=== PATIENT | male | born 1955 | race Two or more races ===

== ENCOUNTER 2024-07-13 23:01 | Emergency (ER) | payer SELFPAY ==
[~2024-07-13] VITALS: Ht 180.3 cm; Wt 62.5 kg
[2024-07-13 23:25] VITALS: BP 118/76; RESP 20; O2SAT 98
[2024-07-14 01:00] LABS: Basophils # (auto) 0 10 ^3/uL (0-0.2); Basophils % (auto) 0.3 % (0.0-2.0); Eosinophils # (auto) 0.2 10 ^3/uL (0-0.8); Eosinophils % (auto) 1.5 % (0.0-7.0); Hematocrit 42.2 % (41.0-53.0); Hemoglobin 14.4 g/dL (13.5-17.5); Lymphocytes # (auto) 1.3 10 ^3/uL (0.4-5.4); Lymphocytes % (auto) 9.8 % (10.0-50.0); Mean Corpuscular Hemoglobin 31.2 pg (28.0-32.0); Mean Corpuscular Volume 91.7 fL (80.0-100.0); Monocytes # (auto) 0.7 10 ^3/uL (0-1.3); Monocytes % (auto) 4.8 % (0.0-12.0); Neutrophils # (auto) 11.3 10 ^3/uL (1.6-8.6); Neutrophils % (auto) 83.6 % (37.0-80.0); Platelet Count (auto) 234 10^3/uL (140-450); Red Cell Distribution Width 14.2 % (11.8-14.3); White Blood Cell 13.5 10^3/uL (4.4-10.8)
[2024-07-14 01:03] LABS: Urine Bacteria None Seen /hpf (None Seen)
[2024-07-14 01:16] LABS: INR 0.96 (0.9-1.15); Partial Thromboplastin Time 26.6 SEC (24.5-34.5); Prothrombin Time 10.2 sec (9.3-11.8)
[2024-07-14 01:19] LABS: Urine Amorphous Crystal FEW /hpf (None Seen); Urine Blood 1+ /uL (Negative); Urine Clarity Clear (Clear); Urine Color Yellow (Yellow); Urine Protein, UAD TRACE (Negative); Urine Specific Gravity 1.024 (1.001-1.035); Urine Urobilinogen Normal (Negative); Urine WBC 1 /hpf (0 - 3); Urine pH 6.5 (5.0-9.0)
[2024-07-14 01:33] LABS: Alanine Aminotransferase 15 U/L (7-40); Albumin 4.7 g/dL (3.2-4.8); Alkaline Phosphatase 60 U/L (46-116); Anion Gap 5 (5-15); Aspartate Aminotransferase 13 U/L (13-40); BUN/Creatinine Ratio 9.5 (10.0-20.0); Bilirubin, Total 0.7 mg/dL (0.2-1.0); Blood Urea Nitrogen 10 mg/dL (9-23); Calcium 9.7 mg/dL (8.7-10.4); Carbon Dioxide 26 mmol/L (20-30); Chloride 107 mmol/L (98-107); Glucose 103 mg/dL (74-106); Lipase 38 U/L (12-53); Sodium 138 mmol/L (136-145)
[2024-07-14 02:10] VITALS: PULSE 62
== END 2024-07-14 03:49 | disposition left against medical advice (07) ==
LOC: ER 23:01
DX: K37 Unspecified appendicitis (principal)
CPT/HCPCS: 36415; 71045; 74176; 80053; 81001; 83690; 84484; 85025; 85610; 85730; 93005

== ENCOUNTER 2024-07-14 14:02 | Emergency (ER) | payer OTHER ==
[~2024-07-14] VITALS: Ht 180.3 cm; Wt 63.5 kg
[2024-07-14 16:05] LABS: INR 1.01 (0.9-1.15); Partial Thromboplastin Time 29.3 SEC (24.5-34.5); Prothrombin Time 10.7 sec (9.3-11.8)
[2024-07-14] MEDS: PIPERACILLIN-TAZOB 3.375GM 100 ML IV ONE (16:13)
[2024-07-14] MEDS: SODIUM CHLORIDE 0.9% 1,000 ML IVB ONE (16:14)
[2024-07-14 16:17] VITALS: BP 117/74; PULSE 64; RESP 15; TEMP 97; O2SAT 99
== END 2024-07-14 23:09 | disposition left against medical advice (07) ==
LOC: ER 14:02
DX: R10.31 Right lower quadrant pain (principal); K35.80 Unspecified acute appendicitis
CPT/HCPCS: 36415; 85610; 85730; 96365; 99284; J2543; J7030; 96361

== ENCOUNTER 2024-09-28 06:14 | Inpatient (IN) | payer OTHER ==
[~2024-09-28] VITALS: Ht 180.3 cm; Wt 63.5 kg
--- NOTE | 2024-09-28 06:39 | ED.PDOC ---
GI ASSESSMENT HPI Comments 69M presents to the ER w/ prior Hx of being diagnosed w/ appendicitis in June which may be associated to the c/c of ABD pain. Pt reports on having periumbilical pain at 0300 today associated w/ N/ and chills. Social Hx of tobacco use but denies alcohol and substance use. Denies fever, /V/D, SOB, CP or other associated symptoms, modifiers, or recent injuries or sick contact at this time. Chief Complaint: Abdominal Pain Time Seen by MD: 06:30 Primary Care Provider: ANNA Reviewed Notes: Nurses Notes, Medications, Allergies Allergies: Coded Allergies: NO KNOWN ALLERGIES (Unverified , 07/14/24) Information Source: Patient Mode of Arrival: Ambulatory Timing: Hours Duration: Since onset, Hours Prehospital treatment: None Quality: Aching Vomitus: None Stool: Normal Severity: Moderate Recent: None Recent Hx of: None Pain Location: Epigastric Associated sign and symptoms: Nausea, Abdominal Pain Past Medical History Past Medical History (Other): Diagnosed w/ appendecitis in June Surgical History: Denies all surgeries Family History Family History: Reviewed,noncontributory to illness, Unknown Social History Smoker: Cigarettes Alcohol: Denies ETOH Use Drugs: Denies Drug Use Lives In: Home Constitutional: reports: chills; denies: diaphoresis, fatigue, fever, malaise, sweats, weakness, others EENTM: denies: blurred vision, double vision, ear bleeding, ear discharge, ear drainage, ear pain, ear ringing, eye pain, eye redness, hearing loss, mouth pain, mouth swelling, nasal discharge, nose bleeding, nose congestion, nose pain, photophobia, tearing, throat pain, throat swelling, voice changes, others Respiratory: denies: cough, hemoptysis, orthopnea, SOB at rest, shortness of breath, SOB with excertion, stridor, wheezing, others Cardiovascular: denies: chest pain, dizzy spells, diaphoresis, Dyspnea on exertion, edema, irregular heart beat, left arm pain, lightheadedness, palpitations, PND, syncope, others Gastrointestinal: reports: abdominal pain, nausea; denies: abdomen distended, blood streaked bowels, constipated, diarrhea, dysphagia, difficulty swallowing, hematemesis, melena, poor appetite, poor fluid intake, rectal bleeding, rectal pain, vomiting, others Genitourinary: denies: burning, dysuria, flank pain, frequency, hematuria, incontinence, penile discharge, penile sore, pain, testicle pain, testicle swelling, urgency, others Neurological: denies: dizziness, fainting, headache, left sided numbness, left sided weakness, numbness, paresthesia, pre-existing deficit, right sided numbness, right sided weakness, seizure, speech problems, tingling, tremors, weakness, others Musculoskeletal: denies: back pain, gout, joint pain, joint swelling, muscle pain, muscle stiffness, neck pain, others Integumetry: denies: bruises, change in color, change in hair/nails, dryness, laceration, lesions, lumps, rash, wounds, others Allergic/Immunocompromised: denies: Difficulty Healing, Frequent Infections, Hives, Itching, others Hematologic/Lymphatic: denies: anemia, blood clots, easy bleeding, easy bruising, swollen glands, others Endocrine: denies: excessive hunger, excessive sweating, excessive thirst, excessive urination, flushing, intolerance to cold, intolerance to heat, unexplained weight gain, unexplained weight loss, others Psychiatric: denies: anxiety, bipolar disorder, depression, hopeless, panic disorder, schizophrenia, sleepless, suicidal, others All Other Systems: Reviewed and Negative Physical Exam General Appearance: Moderate Distress, Normal HEENT: Normal ENT Inspection, Pharynx Normal, TMs Normal Neck: Full Range of Motion, Non-Tender, Normal, Normal Inspection Respiratory: Chest Non-Tender, Lungs Clear, No Accessory Muscle Use, No Respiratory Distress, Normal Breath Sounds Cardiovascular: No Edema, No JVD, No Murmur, No Gallop, Normal Peripheral Pulses, Regular Rate/Rhythm Breast Exam: Deferred Gastrointestinal: Distended, No Organomegaly, Non Tender, No Pulsatile Mass, Normal Bowel Sounds, Soft Genitalia: Deferred Pelvic: Deferred Rectal: Deferred Extremities: No calf tenderness, Normal capillary refill, Normal inspection, Normal range of motion, Non-tender, No pedal edema Musculoskeletal : Apperance: Normal Neurologic: Alert, digital analyst II-XII nml as Tested, No Motor Deficits, Normal Affect, Normal Mood, No Sensory Deficits Cerebellar Function: Normal Reflexes: Normal Skin: Dry, Normal Color, Warm Peripheral Pulses: 3+ Radial (R), 3+ Radial (L) Lymphatic: No Adenopathy Was a procedure done? Was a procedure done?: No GI differential Dx Differential Diagnosis: Constipation, Diverticular disease, Esophagitis, Gastritis/PUD, Gastroenteritis X-Ray, Labs, Meds, VS Vital Signs Date Time Temp Pulse Resp B/P (MAP) Pulse Ox O2 Delivery O2 Flow Rate FiO2 09/28/24 06:22 98.1 78 17 133/76 (95) 98 Patient alert. Complaining of abdominal pain. Slightly distended. Vitals stable. Answering all questions. Was seen here few months ago for similar pain. Was diagnosed with a appendicitis. He left without having the procedure. Reviewed his previous visit. Explained to the patient. Continue cardiac monitoring. Establish intravenous access. Was given fluids. Was given morphine. Was given Zofran. Was given Rocephin. He continues to smoke cigarettes. Counseled patient on effects of smoking cigarettes for 15 minutes. Time of 1ST Reevaluation: 07:00 Reevaluation 1ST: Unchanged Patient Education/Counseling: Diagnosis, Treatment, Prognosis Family Education/Counseling: No Family Present Departure 1 Departure Time of Disposition: 06:50 Impression: Primary Impression: Acute abdominal pain Additional Impression: Acute appendicitis Qualified Codes: K35.80 - Unspecified acute appendicitis Disposition: ADMITTED INPATIENT Admit to: Med Surg Condition: Guarded Critical Care Note Critical Care Time?: Yes (45 min-critical care time only) Stability Stability form required: No Heart Score Heart Score: Heart Score Response (Comments) Value History N/A 0 EKG N/A 0 Age N/A 0 Risk Factors N/A 0 Troponin N/A 0 Total 0 I personally scribed for JOSE F BRANTLEY MD ([email or web address]) on 09/28/24 at 06:39. Electronically submitted by Adeel Lambert ([email or web address]). JOSE F BRANTLEY MD Sep 28, 2024 06:39
[2024-09-28 07:07] LABS: Basophils # (auto) 0 10 ^3/uL (0-0.2); Basophils % (auto) 0.2 % (0.0-2.0); Eosinophils # (auto) 0.3 10 ^3/uL (0-0.8); Eosinophils % (auto) 1.9 % (0.0-7.0); Hematocrit 41.5 % (41.0-53.0); Hemoglobin 13.7 g/dL (13.5-17.5); Lymphocytes # (auto) 1.4 10 ^3/uL (0.4-5.4); Lymphocytes % (auto) 9.4 % (10.0-50.0); Mean Corpuscular Hemoglobin 30.3 pg (28.0-32.0); Mean Corpuscular Hgb Conc. 33.1 g/dL (32.0-36.0); Mean Corpuscular Volume 91.6 fL (80.0-100.0); Monocytes # (auto) 0.5 10 ^3/uL (0-1.3); Monocytes % (auto) 3.6 % (0.0-12.0); Neutrophils # (auto) 12.3 10 ^3/uL (1.6-8.6); Neutrophils % (auto) 84.9 % (37.0-80.0); Platelet Count (auto) 245 10^3/uL (140-450); Red Blood Cells 4.53 10^6/uL (4.5-5.90); Red Cell Distribution Width 14.6 % (11.8-14.3); White Blood Cell 14.6 10^3/uL (4.4-10.8)
[2024-09-28] MEDS: SODIUM CHLORIDE 0.9% 1,000 ML IV ONE (07:22)
[2024-09-28] MEDS: cefTRIAXone 1GM/50ML D5W 50 ML IV ONE (07:22)
[2024-09-28] MEDS: MORPHINE SULFATE 4 MG/ML SYR/VIAL IV ONE (07:24)
[2024-09-28] MEDS: ONDANSETRON HCL 4 MG/2 ML VIAL IV ONE (07:24)
[2024-09-28 07:47] LABS: Chloride 108 mmol/L (98-107); Sodium 138 mmol/L (136-145)
[2024-09-28 07:48] LABS: Anion Gap 3 (5-15); Calcium 9.7 mg/dL (8.7-10.4); Carbon Dioxide 27 mmol/L (20-31)
[2024-09-28 07:53] LABS: BUN/Creatinine Ratio 9.2 (10.0-20.0); Blood Urea Nitrogen 11 mg/dL (9-23); Glucose 136 mg/dL (74-106)
--- NOTE | 2024-09-28 08:06 | DVH ---
Exam: CT CT AB PEL WO CON-NO ORAL OR IV History: appy Comparison Study: CT CT AB PEL WO CON-NO ORAL OR IV on DOS: 07/13/24 Technique: Multidetector spiral CT of the abdomen was performed from lung bases to pubic symphysis. Imaging was performed without IV contrast. Axial, coronal and sagittal multiplanar reformats were ob tained from the axial data set by the technologist. Radiation Dose : 1. Abdomen/Pelvis: CTDIvol 5.1 mGy, DLP 262.51 mGy*cm. Findings: Evaluation of solid organs is limited due to lack of intravenous contrast use. Lung Bases: No acute or significant lung base finding. Normal heart size. No pleural or pericardial effusion. Liver: The liver is normal in size. No focal lesions. Gallbladder and Biliary Tree: Unremarkable Spleen: Unremarkable Pancreas: The pancreas is grossly normal in appearance. Adrenal Glands: Unremarkable Kidneys: No hydronephrosis. Bilateral renal medullary nephrocalcinosis. Bladder: Grossly unremarkable for degree of distention. Bowel: Distended stomach. Diverticulosis. Appendix is diffusely dilated measuring 1.2 cm with mild p eriappendiceal inflammatory change. Ascites: Absent Lymphadenopathy: No mesenteric, retroperitoneal or periportal lymphadenopathy. Abdominal Wall and Mesentery: Unremarkable. Vasculature: The visualized abdominal aorta is normal in size and caliber. There is extensive athero sclerotic calcification of the aorta and its branches. Evaluation of abdominal and pelvic vessels is limited due to lack of intravenous contrast. Pelvic Organs: Unremarkable Musculoskeletal: No aggressive focal bony lesions, acute fractures or dislocation. Multilevel degener ative changes of the spine. IMPRESSION: The appendix is diffusely dilated with mild periappendiceal inflammatory changes. Maximal diameter o f the appendix measures 1.2 cm. Findings are suspicious for acute appendicitis, however, appearance i s similar to CT dated 07/13/2024. Clinical correlation advised. Radiation optimization: All CT scans at this facility use at least one of these dose optimization jan hniques: automated exposure control mA and/or kV adjustment per patient size (includes targeted exam s where dose is matched to clinical indication) or iterative reconstruction.
[2024-09-28 08:45] VITALS: PULSE 74; RESP 15; O2SAT 100
[2024-09-28] MEDS: metroNIDAZOLE 500MG/100ML 100 ML IV ONE (08:52)
[2024-09-28] MEDS ORDERED: HYDROcodone-ACET 5/325MG TAB PO PRN (13:15)
[2024-09-28] MEDS ORDERED: MORPHINE SULFATE INJ 2 MG/ml SYRG IV PRN (13:15)
[2024-09-28] MEDS ORDERED: ONDANSETRON HCL 4 MG/2 ML VIAL IV PRN (13:15)
[2024-09-28] MEDS ORDERED: MAALOX PLUS or MAALOX 30 ML PO PRN (13:15)
[2024-09-28] MEDS ORDERED: DOCUSATE SOD 100 MG CAP PO PRN (13:15)
[2024-09-28] MEDS ORDERED: ACETAMINOPHEN 325 MG TAB PO PRN (13:15)
[2024-09-28] MEDS: metroNIDAZOLE 500MG/100ML 100 ML IV SCH (14:27)
[2024-09-28] MEDS: D5W/SOD CHL 0.45% 1,000 ML IV ONE (14:27)
--- NOTE | 2024-09-28 14:48 | DVHINCON2 ---
Date of service: Sep 28, 2024 Allergies: Coded Allergies: NO KNOWN ALLERGIES (Unverified , 07/14/24) Current Medications Current Medications Medications (Trade) Dose Ordered Sig/Krystyna Route PRN Reason Start Time Stop Time Status Last Admin Metronidazole 100 ml @ 100 mls/hr Q8HR IV 09/28/24 14:00 09/28/24 14:27 Morphine Sulfate 2 mg Q4HPRN PRN IV PAIN SCALE 7 THRU 10 09/28/24 13:15 Al Hydrox/Mg Hydrox/Simethicone (Maalox Plus) 30 ml Q6HP PRN PO FOR STOMACH DISTRESS 09/28/24 13:15 Docusate Sodium (Colace Capsule) 100 mg BIDPRN PRN PO FOR CONSTIPATION 09/28/24 13:15 Acetaminophen (Tylenol Tablet) 650 mg Q6HP PRN PO PAIN SCALE 1-3 OR TEMP>100.4 09/28/24 13:15 Acetaminophen/ Hydrocodone Bitart ([place] 5/325MG Tab) 1 tab Q4HP PRN PO MODERATE PAIN (4-6 PAIN SCALE) 09/28/24 13:15 Ondansetron HCl (Zofran) 4 mg Q4HP PRN IV NAUSEA / VOMITING 09/28/24 13:15 Vital Signs Vital Signs Date Time Temp Pulse Resp B/P (MAP) Pulse Ox O2 Delivery O2 Flow Rate FiO2 09/28/24 14:00 65 16 91/48 (62) 97 09/28/24 08:45 Room Air* 0 21 09/28/24 07:13 98.6 98.6 Labs/Diagnostic Data Labs Test 09/28/24 06:29 Range/Units White Blood Count 14.6 H 4.4-10.8 10^3/uL Red Blood Count 4.53 4.5-5.90 10^6/uL Hemoglobin 13.7 13.5-17.5 g/dL Hematocrit 41.5 41.0-53.0 % Mean Corpuscular Volume 91.6 80.0-100.0 fL Mean Corpuscular Hemoglobin 30.3 28.0-32.0 pg Mean Corpuscular Hemoglobin Concent 33.1 32.0-36.0 g/dL Red Cell Distribution Width 14.6 H 11.8-14.3 % Platelet Count 245 140-450 10^3/uL Mean Platelet Volume 8.7 6.9-10.8 fL Neutrophils (%) (Auto) 84.9 H 37.0-80.0 % Lymphocytes (%) (Auto) 9.4 L 10.0-50.0 % Monocytes (%) (Auto) 3.6 0.0-12.0 % Eosinophils (%) (Auto) 1.9 0.0-7.0 % Basophils (%) (Auto) 0.2 0.0-2.0 % Neutrophils # (Auto) 12.3 H 1.6-8.6 10 ^3/uL Lymphocytes # (Auto) 1.4 0.4-5.4 10 ^3/uL Monocytes # (Auto) 0.5 0-1.3 10 ^3/uL Eosinophils # (Auto) 0.3 0-0.8 10 ^3/uL Basophils # (Auto) 0 0-0.2 10 ^3/uL Nucleated Red Blood Cells 0.0 % Sodium Level 138 136-145 mmol/L Potassium Level 4.0 3.5-5.1 mmol/L Chloride Level 108 H 98-107 mmol/L Carbon Dioxide Level 27 20-31 mmol/L Anion Gap 3 L 5-15 Blood Urea Nitrogen 11 9-23 mg/dL Creatinine 1.20 0.700-1.30 mg/dL Glomerular Filtration Rate Calc 65 >90 mL/min BUN/Creatinine Ratio 9.2 L 10.0-20.0 Serum Glucose 136 H 74-106 mg/dL Calcium Level 9.7 8.7-10.4 mg/dL Assessment 69 YEASR OLD MALE HAD IDENTICAL ILLNESS IN JUNE BUT "IT WENT AWAY BY ITSELF", NOW C/O ABDOMINAL PAIN, CT SCAN SHOWS APPENDICEAL ENLARGEMENT, WITHOUT SURROUNDING INFLAMMATORY CHANGES, ABDOMEN EXAM:TENDER RLQ WITHOUT GUARDING OR REBOUND. WILL DO APPENDECTOMY IN THE MORNING, OPERATION, RISKS AND COMPLICATIONS EXPLAINED IN DETAIL Plan discussed with: Patient GERBER LOVE MD Sep 28, 2024 14:48
[2024-09-28 14:58] VITALS: BP 98/51; PULSE 65; RESP 18; TEMP 97.8; O2SAT 98
--- NOTE | 2024-09-28 15:20 | DVHHP2 ---
History of Present Illness Reason for Visit: abdominal pain History of Present Illness 69 yo male elder feeble appearing states acute abdominal pain came to the ed for evaluation ct scan showed appendix enlargement signs of acute appendicitis with worsening pain patient for admission and further evaluation Review of Systems Constitutional: Yes: Fever; No: Chills, Sweats, Weakness, Malaise, Other Eyes: No: Pain, Vision change, Conjunctivae inflammation, Eyelid inflammation, Other, Redness ENT: No: Ear pain, Ear discharge, Nose pain, Nose discharge, Nose congestion, Mouth pain, Mouth swelling, Throat pain, Throat swelling, Other Respiratory: No: Cough, Dry, Shortness of breath, SOB with excertion, Wheezing, Hemoptysis, Pleuritic Pain, Sputum, Wheezing, Other Cardiovascular: No: Chest Pain, Palpitations, Orthopnea, Paroxysmal Noc. Dyspnea, Edema, Lt Headedness, Other Gastrointestinal: Abdominal Pain; No: Nausea, Vomiting, Diarrhea, Constipation, Melena, Hematochezia, Other Genitourinary: No Dysuria, No Frequency, No Incontinence, No Hematuria, No Retention, No Other Musculoskeletal: No: other, neck pain, shoulder pain, arm pain, back pain, hand pain, leg pain, foot pain Skin: No: Rash, Lesions, Jaundice, Bruising, Other Neurological: No: Weakness, Numbness, Incoordination, Change in speech, Confusion, Seizures, Other Allergies: Coded Allergies: NO KNOWN ALLERGIES (Unverified , 07/14/24) Medications Current Medications Medications Dose Ordered Sig/Krystyna Route Start Time Stop Time Status Last Admin Dose Admin Metronidazole 100 ml @ 100 mls/hr Q8HR IV 09/28/24 14:00 09/28/24 14:27 100 MLS/HR Morphine Sulfate 2 mg Q4HPRN PRN IV 09/28/24 13:15 Al Hydrox/Mg Hydrox/Simethicone 30 ml Q6HP PRN PO 09/28/24 13:15 Docusate Sodium 100 mg BIDPRN PRN PO 09/28/24 13:15 Acetaminophen 650 mg Q6HP PRN PO 09/28/24 13:15 Acetaminophen/ Hydrocodone Bitart 1 tab Q4HP PRN PO 09/28/24 13:15 Ondansetron HCl 4 mg Q4HP PRN IV 09/28/24 13:15 Exam Vital Signs Vital Signs Date Time Temp Pulse Resp B/P (MAP) Pulse Ox O2 Delivery O2 Flow Rate FiO2 09/28/24 14:00 65 16 91/48 (62) 97 09/28/24 13:17 98.1 98.1 09/28/24 08:45 Room Air* 0 21 General Appearance: Alert, Oriented X3 HEENT: Atraumatic, PERRLA Respiratory: Clear to auscultation, Normal air movement Cardiovascular: Regular rate, Normal S1, Normal S2 Abdominal: Other (abdominal pain with tenderness mild ) Extremities: No clubbing, No cyanosis Skin: No rashes, No breakdown Neuro: Normal gait, Normal speech Labs/Xrays Labs Test 09/28/24 06:29 Range/Units White Blood Count 14.6 H 4.4-10.8 10^3/uL Red Blood Count 4.53 4.5-5.90 10^6/uL Hemoglobin 13.7 13.5-17.5 g/dL Hematocrit 41.5 41.0-53.0 % Mean Corpuscular Volume 91.6 80.0-100.0 fL Mean Corpuscular Hemoglobin 30.3 28.0-32.0 pg Mean Corpuscular Hemoglobin Concent 33.1 32.0-36.0 g/dL Red Cell Distribution Width 14.6 H 11.8-14.3 % Platelet Count 245 140-450 10^3/uL Mean Platelet Volume 8.7 6.9-10.8 fL Neutrophils (%) (Auto) 84.9 H 37.0-80.0 % Lymphocytes (%) (Auto) 9.4 L 10.0-50.0 % Monocytes (%) (Auto) 3.6 0.0-12.0 % Eosinophils (%) (Auto) 1.9 0.0-7.0 % Basophils (%) (Auto) 0.2 0.0-2.0 % Neutrophils # (Auto) 12.3 H 1.6-8.6 10 ^3/uL Lymphocytes # (Auto) 1.4 0.4-5.4 10 ^3/uL Monocytes # (Auto) 0.5 0-1.3 10 ^3/uL Eosinophils # (Auto) 0.3 0-0.8 10 ^3/uL Basophils # (Auto) 0 0-0.2 10 ^3/uL Nucleated Red Blood Cells 0.0 % Sodium Level 138 136-145 mmol/L Potassium Level 4.0 3.5-5.1 mmol/L Chloride Level 108 H 98-107 mmol/L Carbon Dioxide Level 27 20-31 mmol/L Anion Gap 3 L 5-15 Blood Urea Nitrogen 11 9-23 mg/dL Creatinine 1.20 0.700-1.30 mg/dL Glomerular Filtration Rate Calc 65 >90 mL/min BUN/Creatinine Ratio 9.2 L 10.0-20.0 Serum Glucose 136 H 74-106 mg/dL Calcium Level 9.7 8.7-10.4 mg/dL Assessment/Plan Assessment/Plan Admit to [facility]/Surge Abdominal Pain Acute Appendicitis Surgery consulted Planned Appendectomy 09/29/24 IV abx IV hydration prn pain management npo diet morning labs Plan discussed with: Patient My Orders Orders - FABIO DUVALL MD Procedure Category Date Status Time * Surgical Consult CONS 09/28/24 Transmitted Metronidazole PHA 09/28/24 In Process 500mg/100ml (Flagyl 14:00 D5w/Sod Chl 0.45% PHA 09/28/24 In Process (D5w 1/2ns) 13:15 Morphine Sulfate PHA 09/28/24 In Process Injection 13:15 Admit ADMIT 09/28/24 Transmitted 13:09 Code Status CODE 09/28/24 Transmitted 13:09 Vital Signs NASIMA 09/28/24 In Process 13:09 Review Orders With NASIMA 09/28/24 In Process Adm. 13:09 Npo (Nothing By DIET 09/28/24 Transmitted Mouth) Diet Lunch Alum & Mag PHA 09/28/24 In Process Hydrox-Simethicone 13:15 Docusate Sodium PHA 09/28/24 In Process Capsule (Colace 13:15 Acetaminophen Tablet PHA 09/28/24 In Process (Tylenol Tablet) 13:15 Notify Of Changes [facility] 09/28/24 In Process From Base 13:09 Advance Directive NASIMA 09/28/24 In Process 13:09 Basic Metabolic Panel LAB 09/29/24 Verified 04:00 Complete Blood Count LAB 09/29/24 Verified 04:00 Patient Condition ORDERS 09/28/24 Transmitted 13:09 Allergies NASIMA 09/28/24 In Process 13:09 Hydrocodone-Acet PHA 09/28/24 In Process 5/325mg Tab ([place] 13:15 Ondansetron Hcl PHA 09/28/24 In Process (Zofran) 13:15 Notify Md Of Changes [facility] 09/28/24 In Process From Base 13:09 Ammonia Nitrate Operator For [facility] 09/28/24 In Process 24 Hours 13:09 Emergency Dysrhythmia [facility] 09/28/24 In Process Protocol 13:09 Rhythm Strips Once [facility] 09/28/24 In Process Every Shift 13:09 Oxygen By Nasal RT 09/28/24 Transmitted Cannula 13:09 Problem List: (1) Appendicitis (2) Acute appendicitis (3) Acute abdominal pain Date of Service: Sep 28, 2024 Billing Provider: FABIO DUVALL MD Common Visit Codes: 24691-HGEMCWL INP/OBS CARE (HIGH) FABIO DUVALL MD Sep 28, 2024 15:20
[2024-09-28 16:14] LABS: INR 0.99 (0.9-1.15); Prothrombin Time 10.5 sec (9.3-11.8)
[2024-09-28 17:03] VITALS: BP 96/57; PULSE 66; RESP 20; TEMP 97.7; O2SAT 98
[2024-09-28 21:00] VITALS: BP 103/48; PULSE 69; RESP 17; TEMP 99.1; O2SAT 98
[2024-09-29 05:00] VITALS: BP_SYST 149; BP_SYST 94; BP_DIAS 41; BP_DIAS 75; PULSE 68; PULSE 89; RESP 18; TEMP 97.2; TEMP 98.6; O2SAT 97
[2024-09-29 05:23] LABS: Calcium 8.7 mg/dL (8.7-10.4); Chloride 110 mmol/L (98-107); Potassium 3.8 mmol/L (3.5-5.1); Sodium 138 mmol/L (136-145)
[2024-09-29 05:24] LABS: Anion Gap 5 (5-15); Carbon Dioxide 23 mmol/L (20-31)
[2024-09-29 05:29] LABS: BUN/Creatinine Ratio 13.3 (10.0-20.0); Basophils # (auto) 0 10 ^3/uL (0-0.2); Basophils % (auto) 0.2 % (0.0-2.0); Blood Urea Nitrogen 14 mg/dL (9-23); Eosinophils # (auto) 0.2 10 ^3/uL (0-0.8); Eosinophils % (auto) 1.9 % (0.0-7.0); Glucose 103 mg/dL (74-106); Hematocrit 34.8 % (41.0-53.0); Hemoglobin 11.8 g/dL (13.5-17.5); Lymphocytes # (auto) 2.2 10 ^3/uL (0.4-5.4); Lymphocytes % (auto) 18.1 % (10.0-50.0); Mean Corpuscular Hgb Conc. 33.9 g/dL (32.0-36.0); Mean Corpuscular Volume 91.6 fL (80.0-100.0); Monocytes # (auto) 0.7 10 ^3/uL (0-1.3); Monocytes % (auto) 5.9 % (0.0-12.0); Neutrophils % (auto) 73.9 % (37.0-80.0); Platelet Count (auto) 198 10^3/uL (140-450); Red Cell Distribution Width 14.3 % (11.8-14.3); White Blood Cell 12.2 10^3/uL (4.4-10.8)
--- NOTE | 2024-09-29 08:17 | DVH ---
Procedure: XY CHEST PORTABLE 09/29/2024 07:58 AM Indication: PRE-OP EVAL. Comparison: XY CHEST PORTABLE on DOS: 07/13/24 TECHNIQUE: XY CHEST PORTABLE FINDINGS: Medical devices: None. Cardiomediastinal: The heart is normal in size. Pulmonary vasculature is within normal limits. Athero sclerotic calcification of the aortic arch noted. Lungs: No focal pulmonary opacity is seen. The costophrenic angles are clear. No pneumothorax. Bones/soft tissues: No acute abnormality is noted. IMPRESSION: 1. No acute cardiopulmonary disease.
[2024-09-29 09:00] VITALS: BP 95/45; PULSE 64; RESP 18; TEMP 99.3; O2SAT 96
--- NOTE | 2024-09-29 12:27 | DVHPN2 ---
Progress Note Date Seen: Sep 29, 2024 Medical Necessity Reason Pt with a Central, PICC or Fol: No Objective vital signs Vital Sign Date Time Temp Pulse Resp B/P (MAP) Pulse Ox O2 Delivery O2 Flow Rate FiO2 09/29/24 09:00 99.3 64 18 95/45 (62) 96 99.3 09/28/24 20:00 Room Air* 0 21 Total Intake and Output 09/28/24 09/28/24 09/29/24 15:00 23:00 07:00 Intake Total 1050 ml 0 ml Output Total 200 ml 1050 ml Balance 1050 ml -200 ml -1050 ml medications Current Medications Medications Dose Ordered Sig/Krystyna Route Start Time Stop Time Status Last Admin Dose Admin Metronidazole 100 ml @ 100 mls/hr Q8HR IV 09/28/24 14:00 09/29/24 05:11 100 MLS/HR Morphine Sulfate 2 mg Q4HPRN PRN IV 09/28/24 13:15 Al Hydrox/Mg Hydrox/Simethicone 30 ml Q6HP PRN PO 09/28/24 13:15 Docusate Sodium 100 mg BIDPRN PRN PO 09/28/24 13:15 Acetaminophen 650 mg Q6HP PRN PO 09/28/24 13:15 Acetaminophen/ Hydrocodone Bitart 1 tab Q4HP PRN PO 09/28/24 13:15 Ondansetron HCl 4 mg Q4HP PRN IV 09/28/24 13:15 laboratory and microbiology Laboratory Tests 09/29/24 04:55 Test 09/29/24 04:55 Range/Units Serum Glucose 103 74-106 mg/dL Problem List/Assessment/Plan Problem List/Assessment/Plan 09/29/24 i was notified that patient is refusing an operation and wants to leave AMA, I have cancelled his procedure Plan discussed with: GERBER Trujillo MD Sep 29, 2024 12:26
[2024-09-29 13:00] VITALS: BP 101/47; PULSE 60; RESP 18; TEMP 98.4; O2SAT 98
--- NOTE | 2024-09-29 15:33 | DVHDSRES ---
Discharge Summary Date of Admission Resident Creating Document: RUDI BYRD RESIDENT Sep 28, 2024 at 13:09 Date of Discharge: Sep 29, 2024 Admitting Diagnosis Acute abdominal pain Wounds: No wounds present at this time. Labs/Diagnostic Data: Laboratory Results Test 09/29/24 04:55 09/28/24 15:13 White Blood Count 12.2 10^3/uL (4.4-10.8) Red Blood Count 3.80 10^6/uL (4.5-5.90) Hemoglobin 11.8 g/dL (13.5-17.5) Hematocrit 34.8 % (41.0-53.0) Mean Corpuscular Volume 91.6 fL (80.0-100.0) Mean Corpuscular Hemoglobin 31.0 pg (28.0-32.0) Mean Corpuscular Hemoglobin Concent 33.9 g/dL (32.0-36.0) Red Cell Distribution Width 14.3 % (11.8-14.3) Platelet Count 198 10^3/uL (140-450) Mean Platelet Volume 8.4 fL (6.9-10.8) Neutrophils (%) (Auto) 73.9 % (37.0-80.0) Lymphocytes (%) (Auto) 18.1 % (10.0-50.0) Monocytes (%) (Auto) 5.9 % (0.0-12.0) Eosinophils (%) (Auto) 1.9 % (0.0-7.0) Basophils (%) (Auto) 0.2 % (0.0-2.0) Neutrophils # (Auto) 9.0 10 ^3/uL (1.6-8.6) Lymphocytes # (Auto) 2.2 10 ^3/uL (0.4-5.4) Monocytes # (Auto) 0.7 10 ^3/uL (0-1.3) Eosinophils # (Auto) 0.2 10 ^3/uL (0-0.8) Basophils # (Auto) 0 10 ^3/uL (0-0.2) Nucleated Red Blood Cells 0.0 % Sodium Level 138 mmol/L (136-145) Potassium Level 3.8 mmol/L (3.5-5.1) Chloride Level 110 mmol/L (98-107) Carbon Dioxide Level 23 mmol/L (20-31) Anion Gap 5 (5-15) Blood Urea Nitrogen 14 mg/dL (9-23) Creatinine 1.05 mg/dL (0.700-1.30) Glomerular Filtration Rate Calc 76 mL/min (>90) BUN/Creatinine Ratio 13.3 (10.0-20.0) Serum Glucose 103 mg/dL (74-106) Calcium Level 8.7 mg/dL (8.7-10.4) Prothrombin Time 10.5 sec (9.3-11.8) Prothrombin Time INR 0.99 (0.9-1.15) Activated Partial Thromboplast Time 28.0 SEC (24.5-34.5) Other Laboratory Tests 09/29/24 04:55 Brief Hx & Hospital Course: This is a 69-year-old male with unknown past medical history who presented to the ED with chief complaint of acute abdominal pain. The patient reported a periumbilical pain which now is more localized in the right lower quadrant. On physical examination, McBurney sign was positive, David score was calculated been seven points, making diagnosis of appendicitis very likely. Initial chest x-ray was grossly unremarkable with no evidence of consolidations. CT scan of the abdomen showed appendix diffusely dilated with mild periappendiceal inflammatory changes. Patient was started on IV metronidazole, [place] for pain modulation. The patient was advised to have surgery and was scheduled for laparoscopic appendectomy but patient declined surgery stating that he only wants antibiotics for treatment. We have a long discussion of at least 25 minutes explaining the need of surgery and that antibiotics by itself will not help clearing the infection. Patient agreed and understood but still persisted in not wanting any surgical intervention at this time. The patient left AMA after having these long discussion and explained in the need of surgery. Consults/Reason for consult Surgery for appendectomy Operations or Procedures Exam: CT CT AB PEL WO CON-NO ORAL OR IV History: appy Comparison Study: CT CT AB PEL WO CON-NO ORAL OR IV on DOS: 07/13/24 Technique: Multidetector spiral CT of the abdomen was performed from lung bases to pubic symphysis. Imaging was performed without IV contrast. Axial, coronal and sagittal multiplanar reformats were obtained from the axial data set by the technologist. Radiation Dose : 1. Abdomen/Pelvis: CTDIvol 5.1 mGy, DLP 262.51 mGy*cm. Findings: Evaluation of solid organs is limited due to lack of intravenous contrast use. Lung Bases: No acute or significant lung base finding. Normal heart size. No pleural or pericardial effusion. Liver: The liver is normal in size. No focal lesions. Gallbladder and Biliary Tree: Unremarkable Spleen: Unremarkable Pancreas: The pancreas is grossly normal in appearance. Adrenal Glands: Unremarkable Kidneys: No hydronephrosis. Bilateral renal medullary nephrocalcinosis. Bladder: Grossly unremarkable for degree of distention. Bowel: Distended stomach. Diverticulosis. Appendix is diffusely dilated measuring 1.2 cm with mild periappendiceal inflammatory change. Ascites: Absent Lymphadenopathy: No mesenteric, retroperitoneal or periportal lymphadenopathy. Abdominal Wall and Mesentery: Unremarkable. Vasculature: The visualized abdominal aorta is normal in size and caliber. There is extensive atherosclerotic calcification of the aorta and its branches. Evaluation of abdominal and pelvic vessels is limited due to lack of intravenous contrast. Pelvic Organs: Unremarkable Musculoskeletal: No aggressive focal bony lesions, acute fractures or dislocation. Multilevel degenerative changes of the spine. IMPRESSION: The appendix is diffusely dilated with mild periappendiceal inflammatory changes. Maximal diameter of the appendix measures 1.2 cm. Findings are suspicious for acute appendicitis, however, appearance is similar to CT dated 07/13/2024. Clinical correlation advised. Procedure: XY CHEST PORTABLE 09/29/2024 07:58 AM Indication: PRE-OP EVAL. Comparison: XY CHEST PORTABLE on DOS: 07/13/24 TECHNIQUE: XY CHEST PORTABLE FINDINGS: Medical devices: None. Cardiomediastinal: The heart is normal in size. Pulmonary vasculature is within normal limits. Atherosclerotic calcification of the aortic arch noted. Lungs: No focal pulmonary opacity is seen. The costophrenic angles are clear. No pneumothorax. Bones/soft tissues: No acute abnormality is noted. IMPRESSION: 1. No acute cardiopulmonary disease. Condition at Discharge: Undetermined Final Diagnosis/Problems List Acute abdominal pain due to appendicitis MASOUD likely due to vasomotor nephropathy Acute anemia Discharge Disposition: AMA Discharge Statement: "Patient was advised to return to the ER or call 911 if any headaches, dizziness, shortness of breath, chest pain, abdominal pain, bleeding, fevers, or worsening of medical condition. Patient was counseled about treatment plan, medications, possible side effects, patientverbalized understanding. All questions were answered to the best of my ability. This discharge took greater then 30 minutes in planning, reviewing documentation, counseling the patient, and discussing with other team members." ASSESSMENT ASSESSMENT Assessment Date of Service: Sep 29, 2024 Billing Provider: YESSICA WOOTEN MD Common Visit Codes: 63570-JMM/OBS DISCH DAY >30min RUDI BYRD RESIDENT Sep 29, 2024 15:33 YESSICA WOOTEN MD Sep 29, 2024 20:49
== END 2024-09-29 14:14 | disposition left against medical advice (07) | DRG 393 ==
LOC: ER 06:14 → OVERFLOW 13:09 → CENTRAL 14:56
PROVIDERS: ADMIT Internal Medicine Geriatric Medicine; ATTEND Internal Medicine Geriatric Medicine
DX: K35.80 Unspecified acute appendicitis (principal); N17.0 Acute kidney failure with tubular necrosis; D64.9 Anemia, unspecified; F17.210 Nicotine dependence, cigarettes, uncomplicated; Z53.29 Procedure and treatment not carried out because of patient's decision for other reasons
CPT/HCPCS: 36415; 71045; 74176; 80048; 85025; 85610; 85730; 86850; 86900; 86901; 99291; G0378; J2405; J3490